=== PATIENT | male | born 1990 | race Caucasian/White ===

== ENCOUNTER 2016-12-10 10:33 | Emergency (ER) | payer SELFPAY ==
[~2016-12-10] VITALS: Ht 182.9 cm; Wt 104.5 kg
[2016-12-10 10:37] VITALS: BP 133/78; PULSE 73; RESP 16; TEMP 97.8; O2SAT 98
--- NOTE | 2016-12-10 12:38 | PD ---
HPI Chief Complaint: Pain: Acute or Chronic Time Seen by Provider: 12:28 Travel History International Travel<30 days: No Contact w/Intl Traveler<30days: No Traveled to known affect area: No History of Present Illness HPI 26-year-old male presents to emergency Department with complaint of right testicular pain on and off for over a month. Onset of testicular pain this morning. Denies testicular swelling, penile pain. Denies penile discharge, dysuria. Has abdominal pain, fever, vomiting. Reports sexual abstinence. Has not taken any medications or tried any treatments to decrease symptoms. Symptoms are moderate in severity. Has no other medical complaints. Past medical history of epilepsy and has not had a seizure since early 1999. Denies current medications. No known allergies. No other modifying factors or associated signs and symptoms. PFSH Past Medical History Diminished Hearing: No Past Surgical History Tonsillectomy: Yes Other Surgery: Yes (SINUS SURGERY) Social History Alcohol Use: Yes (SOCIALLY) Tobacco Use: No Substance Use: No Allergies-Medications (Allergen,Severity, Reaction): Coded Allergies: No Known Allergies (Unverified , 12/10/16) Reported Meds & Prescriptions Reported Meds & Active Scripts Active Ibuprofen 800 Mg Tab 800 Mg PO Q6HR PRN Nystatin Topical (Nystatin) 100,000 unit/gm Cream 1 Applic TOPICAL Q6HR Review of Systems Except as stated in HPI: all other systems reviewed are Neg Physical Exam Narrative GENERAL: Well-nourished, well-developed male patient, in no acute distress; afebrile, nontoxic-appearing SKIN: Warm and dry. Erythremic, moist, foul smelling rash noted to right groin area and externds to right lateral testicle; small open area noted; without drainage. HEAD: Atraumatic. Normocephalic. EYES: Pupils equal and round. ENT: Mucosa pink and moist. NECK: Trachea midline. No lymphadenopathy. CARDIOVASCULAR: Regular rate. RESPIRATORY: No accessory muscle use. GASTROINTESTINAL: Abdomen soft and nondistended, nontender. Hepatic and splenic margins not palpable. Bowel sounds are active 4 quadrants. GENITOURINARY: Exam done in the presence of a nurse. Circumcised. Testes descended bilaterally without evidence of rotation; with tenderness on palpation to the right testicle; right testicle without edema. No lesions or erythema. No urethral discharge. MUSCULOSKELETAL: No obvious deformities. No clubbing. No cyanosis. No edema. NEUROLOGICAL: Awake and alert. Oriented 3. No obvious cranial nerve deficits. Motor grossly within normal limits. Normal speech. Moves all extremities. 5/5 strength to all extremities. PSYCHIATRIC: Appropriate mood and affect; insight and judgment normal. Data Data Last Documented VS Vital Signs Date Time Temp Pulse Resp B/P (MAP) Pulse Ox O2 Delivery O2 Flow Rate FiO2 12/10/16 14:31 16 12/10/16 10:37 97.8 73 133/78 (96) 98 Room Air Orders Orders Us Testicles W Doppler (12/10/16 ) Gc And Chlamydia Pcr (12/10/16 12:40) Urinalysis - C+S If Indicated (12/10/16 12:40) Ibuprofen (Motrin) (12/10/16 13:00) Labs Laboratory Tests Test 12/10/16 12:57 Urine Color LIGHT-YELLOW Urine Turbidity CLEAR Urine pH 6.5 Urine Specific [place] 1.012 Urine Protein NEG mg/dL Urine Glucose (UA) NEG mg/dL Urine Ketones NEG mg/dL Urine Occult Blood NEG Urine Nitrite NEG Urine Bilirubin NEG Urine Urobilinogen LESS THAN 2.0 MG/DL Urine Leukocyte Esterase NEG Urine RBC 1 /hpf Urine WBC 1 /hpf Microscopic Urinalysis Comment CULT NOT INDICATED MDM Medical Decision Making Medical Screen Exam Complete: Yes Emergency Medical Condition: Yes Medical Record Reviewed: Yes Differential Diagnosis Testicular torsion, epididymitis, appendiceal torsion Narrative Course 26-year-old male with right testicular pain on and off times one month with onset again this morning. Physical exam is unremarkable, other than right testicular tenderness on palpation. The testicles without erythema or edema. Testicular ultrasound, ibuprofen, urinalysis, chlamydia, gonorrhea ordered. 1323: Urinalysis with no signs of infection. 1400: Rash noted to right groin area. Looks to be consistent with yeast. 1415: Testicular ultrasound concluded: Last 24 hours Impressions Scrotum Ultrasound 12/10/16 0000 Signed Impressions: Service Date/Time: November 13:08 - CONCLUSION: 1. No intratesticular mass identified. 2. 0.5 x 0.2 x 0.4 cm anechoic cyst within the left epididymis. 3. Blood flow to the testicles is intact bilaterally. Chad Guillen MD Ultrasound results were discussed with the patient. 1420: Dr. Gilmore evaluated the patient and agrees the rash is consistent with a skin yeast infection. Nystatin cream and ibuprofen prescribed for home. Insert the patient to follow up with urologist. Instructed patient to return to the emergency department with if testicular pain returns. Instructed patient to follow up with primary care provider. Patient verbalizes understanding and agreement with treatment plan. Patient is medically cleared and stable for discharge. Discussed reasons to return to the emergency department. Patient agrees with treatment plan. The patients vital signs are stable and the patient is stable for outpatient follow-up and treatment. Patient discharged home, stable and in no acute distress. Diagnosis Primary Impression: Yeast infection of the skin Additional Impression: Testicular pain, right Referrals: Primary Care Physician Urologist Patient Instructions: General Instructions, Skin Yeast Infection (ED), Testicle Pain (ED), Testicular Torsion (ED) Departure Forms: Tests/Procedures, Work Release Enter return to work date: Dec 11, 2016 Additional Instructions: Nystatin cream as prescribed Ibuprofen or Tylenol as directed and as needed for pain Follow up with urologist Follow-up with primary care provider Return to the emergency department immediately if worsening symptoms Med/Other Pt SpecificInfo: Prescription(s) given Scripts Ibuprofen (Ibuprofen) 800 Mg Tab 800 MG PO Q6HR Y for PAIN, #30 TAB 0 Refills Prov: Marie Farias 12/10/16 Nystatin Topical (Nystatin Topical) 100,000 unit/gm Cream 1 APPLIC TOPICAL Q6HR for Infection, #30 GM 1 Refill Prov: Marie Farias 12/10/16 Disposition: 01 DISCHARGE HOME Condition: Stable Marie Farias Dec 10, 2016 12:38
[2016-12-10] MEDS ORDERED: IBUPROFEN 800 MG TAB PO ONE (13:00)
[2016-12-10 13:18] LABS: BLOOD, URINE NEG (NEG); GLUCOSE,URINE NEG (NEG); KETONE, URINE NEG (NEG); NITRITE,URINE NEG (NEG); PH, URINE 6.5 (5.0-8.5); URINE COLOR LIGHT-YELLOW (YELLW/STRAW)
[2016-12-10 13:19] LABS: COMMENT (UR) CULT NOT INDICATED; CULTURE IF INDICATED CULT NOT INDICATED
--- NOTE | 2016-12-10 14:16 | RADRPT ---
EXAM DATE/TIME: 12/10/2016 13:08 [facility] COMPARISON: US TESTICLE W/DOPPLER, April 11, 2015, 18:18. INDICATIONS : Right testicle pain. MEDICAL HISTORY : Testicular pain. SURGICAL HISTORY : Tonsillectomy. Sinus surgery. ENCOUNTER: Subsequent ACUITY: 4 - 6 months PAIN SCORE: 4/10 LOCATION: Bilateral scrotum. MEASUREMENTS: RIGHT TESTICLE: 4.6 x 2.5 x 2.3 cm LEFT TESTICLE: 4.1 x 2.9 x 2.4cm FINDINGS: RIGHT TESTICLE: Homogeneous echotexture without intra or extratesticular mass. There are scattered, punctate calcific ations. Blood flow is symmetric and within normal limits. No hydrocele or varicocele. Epididymis is within normal limits. LEFT TESTICLE: Homogeneous echotexture without intra or extratesticular mass. There are scattered punctate calcifica tions. Blood flow is symmetric and within normal limits. There is very minimal hydrocele. Note is ma de of a 0.5 x 0.2 x 0.4 cm anechoic cyst within the epididymis. SCROTUM: Within normal limits. CONCLUSION: 1. No intratesticular mass identified. 2. 0.5 x 0.2 x 0.4 cm anechoic cyst within the left epididymis. 3. Blood flow to the testicles is intact bilaterally. Chad Guillen MD on December 10, 2016 at 14:13 Board Certified Radiologist. This report was verified electronically.
[2016-12-10 14:31] VITALS: RESP 16
[2016-12-10] MEDS ORDERED: IBUP800T23 PO (14:40)
[2016-12-10] MEDS ORDERED: NYST15T TOPICAL (14:40)
[2016-12-10 20:50] LABS: CHLAMYDIA PCR NOT DETECTED (NOT DETECT); NEISSERIA PCR NOT DETECTED (NOT DETECT)
== END 2016-12-10 14:53 | disposition home or self-care (01) ==
LOC: NEPD 10:33
DX: B37.2 Candidiasis of skin and nail (principal); N50.811 Right testicular pain
CPT/HCPCS: 76870; 81001; 87491; 87591; 93975; 99285